=== PATIENT | female | born 1940 | race Caucasian/White ===

== ENCOUNTER 2019-07-28 16:50 | Inpatient (IN) | payer OTHER ==
[~2019-07-28] VITALS: Ht 160 cm; Wt 76.7 kg
[2019-07-28 16:50] VITALS: BP 165/91
--- NOTE | 2019-07-28 16:50 | NUR ---
Patient SANAM HELLER from [facility], transferred to bed 12. RN evaluating patient at bedside.
--- NOTE | 2019-07-28 16:57 | NUR ---
Patient transferred to bed 11 for further care.
[2019-07-28] MEDS ORDERED: NACL 0.9% 1,000 ML IV SCH (17:09)
[2019-07-28] MEDS ORDERED: cefTRIAXone 1,000 MG in DEXT 5% MINI-BAG PLUS 50 ML IV ONE (17:10)
--- NOTE | 2019-07-28 17:17 | NUR ---
BIB AMBULANCE FROM [facility] FOR ABNORMAL LABS, INCREASED CONFUSION, UTI. HX- DEMENTIA, HYPERLIPIDEMIA, PSYCHOSIS, METABOLIC ENCEPHALOPATHY Addendum: 07/28/19 at 1837 by [facility] 78 Y/F BIBA FROM [facility] FOR ABNORMAL LABS ( LAB NOT SPECIFIED), INCREASED ALTERED CONFUSION, AND UTI. VSS. PT A& O X 1. PT CONFUSED AND APHASIC. SKIN DRY AND INTACT. LUNGS CLEAR. ABDOMEN SOFT AND NONDISTENDED. HX-METABOLIC ENCEPHALOPATHY, MUSCLE WEAKNESS, HYPERLIPIDEMIA, RHABDOMYOLISIS, UTI, HTN, PSYCHOSIS, NKDA.
[2019-07-28] MEDS ORDERED: cefTRIAXone 1,000 MG VIAL ONE (17:23)
--- NOTE | 2019-07-28 17:50 | NUR ---
XR AT BEDSIDE.
--- NOTE | 2019-07-28 17:52 | NUR ---
EKG AT BEDSIDE.
[2019-07-28 18:02] LABS: BASOPHILS # (AUTO) 0.1 K/uL (0.00-0.22); BASOPHILS % (AUTO) 0.9 % (0.0-2.0); EOSINOPHILS # (AUTO) 0.3 K/uL (0-0.4); EOSINOPHILS % (AUTO) 4.4 % (0.0-4.0); HEMOGLOBIN 13.7 g/dL (12.0-16.0); LYMPHOCYTES # (AUTO) 1.6 K/uL (2.5-16.5); LYMPHOCYTES % (AUTO) 24.7 % (20.5-51.1); MEAN CORPUSCULAR HEMOGLOBIN 30 pg (27-31); MEAN CORPUSCULAR HGB CONC 33 g/dL (33-37); MEAN CORPUSCULAR VOLUME 91.2 fL (80-94); MONOCYTES # (AUTO) 0.3 K/uL (0.8-1.0); MONOCYTES % (AUTO) 5.3 % (1.7-9.3); NEUTROPHILS # (AUTO) 4.1 K/uL (1.8-7.7); NEUTROPHILS % (AUTO) 64.7 % (42.2-75.2); PLATELET COUNT (AUTO) 179 K/uL (140-450); RED CELL DISTRIBUTION WIDTH 15.5 % (11.6-13.7); WHITE BLOOD COUNT (AUTO) 6.4 K/uL (4.8-10.8)
[2019-07-28 18:20] LABS: ALBUMIN 3.8 g/dL (3.4-5.0); ASPARTATE AMINOTRANSFERASE 15 U/L (15-37); CHLORIDE 108 mmol/L (98-107); CREATININE 1.2 mg/dL (0.6-1.3); GLUCOSE 100 mg/dL (74-106); SODIUM SERUM 143 mmol/L (136-145); TOTAL BILIRUBIN 0.6 mg/dL (0.0-1.0); UREA NITROGEN, BLOOD 24 mg/dL (7-18)
--- NOTE | 2019-07-28 18:40 | NUR ---
PT LYING COMFORTABLY IN BED, BROTHER AT BEDSIDE.
[2019-07-28 18:45] LABS: APPEARANCE,URINE SL CLOUDY (CLEAR); BILIRUBIN,URINE NEGATIVE (NEGATIVE); BLOOD, URINE NEGATIVE (NEGATIVE); COLOR,URINE YELLOW (YELLOW); LEUKOCYTE ESTERASE ,URINE 1+ (NEGATIVE); NITRITE, URINE POSITIVE (NEGATIVE); UGLUCOSE NEGATIVE (NEGATIVE)
[2019-07-28 19:37] LABS: RBC,URINE 0-5 /HPF (0-5); WBC,URINE >25 (MANY) /HPF (0-5)
[2019-07-28] MEDS ORDERED: ZOLPIDEM 5 MG TAB PO PRN (20:00)
[2019-07-28] MEDS ORDERED: DOCUSATE SODIUM 100 MG GELCAP PO PRN (20:00)
[2019-07-28] MEDS ORDERED: HYDROcodone/APAP 5/325 MG 1 TAB TAB PO PRN (20:00)
[2019-07-28] MEDS ORDERED: MORPHINE SULFATE 2 MG/ML SYR IVP PRN (20:00)
[2019-07-28] MEDS ORDERED: ACETAMINOPHEN 325 MG TAB PO PRN (20:00)
[2019-07-28] MEDS ORDERED: ONDANSETRON 4 MG/2 ML VIAL IM/IVP PRN (20:00)
[2019-07-28] MEDS ORDERED: TRAZ-343 PO (20:13)
[2019-07-28] MEDS ORDERED: MEMA10TA PO (20:13)
[2019-07-28] MEDS ORDERED: MULT-153 PO (20:13)
[2019-07-28] MEDS ORDERED: SIMV40TA1 PO (20:13)
[2019-07-28] MEDS ORDERED: MAGN400S60 PO (20:13)
[2019-07-28] MEDS ORDERED: OLAN2.5T1 PO (20:13)
[2019-07-28] MEDS ORDERED: ACET-2619 PO (20:13)
[2019-07-28] MEDS ORDERED: TUBE5SOL28 ID (20:13)
[2019-07-28] MEDS ORDERED: DONE10TA10 PO (20:31)
[2019-07-28] MEDS ORDERED: FESO8TER PO (20:31)
[2019-07-28] MEDS ORDERED: ASPI-1718 PO (20:31)
[2019-07-28] MEDS ORDERED: NA P135N RC (20:31)
[2019-07-28] MEDS ORDERED: LOSA100T51 PO (20:31)
[2019-07-28 20:50] VITALS: BP 160/84
--- NOTE | 2019-07-28 20:50 | NUR ---
RECEIVED PT TOGOLESE SPEAKER AOX1 DELAYED SPEECH COOPERATIVE TO FOLLOW COMMANDS MRSA NARES SWAB TAKEN AND SENT TO LAB PROTOCOL, HL ON RT HAND GAUGE $ 20 PATENT PT IS ORIENTED TO THE FLOOR CALL LIGHT WITHIN REACH INITIAL ASSESSMENT DONE
[2019-07-28 20:55] LABS: BARBITURATE, URINE NEG. ng/ml (NEG <=200); BENZODIAZEPINE, URINE NEG. ng/mL (NEG <=200); CANNABINOID, URINE NEG. ng/mL (NEG <=50); COCAINE, URINE NEG. ng/mL (NEG <=300); OPIATE, URINE NEG. ng/mL (NEG <=2000); PHENCYCLIDINE SCREEN,URINE NEG. ng/mL (NEG <=25)
[2019-07-28 21:00] LABS: PROTHROMBIN TIME 10.5 secs (10.8-13.4)
[2019-07-28 21:12] LABS: CHOL/HDL RATIO 2.8 (1-4.5); FREE T4 (FREE THYROXINE) 0.95 ng/dL (0.76-1.46); PHOSPHORUS 3.7 mg/dL (2.5-4.9); THYROID STIMULATING HORMONE 1.49 uIU/mL (0.34-3.74)
[2019-07-28] MEDS: NACL 0.9% 1,000 ML IV SCH (21:22)
[2019-07-28] MEDS ORDERED: SIMVASTATIN 40 MG TAB ONE (22:46)
[2019-07-28] MEDS ORDERED: MEMANTINE 10 MG TAB PO SCH (23:00)
[2019-07-28] MEDS ORDERED: OLANZapine 2.5 MG TAB PO SCH (23:00)
[2019-07-28] MEDS ORDERED: hydrALAZINE 20 MG/ML VIAL IVP SCH (23:00)
--- NOTE | 2019-07-28 23:10 | NUR ---
PT TAKEN HER ORAL MEDIC NOT DISTRESS NOTED IV ON RT HAND INFUSING WELL
[2019-07-29] VITALS: BP 133/94
[2019-07-29] MEDS: LORazepam 2 MG/ML VIAL IM/IVP PRN ×2 (01:50→08:35)
--- NOTE | 2019-07-29 02:19 | NUR ---
PT VERY COMBATIVE, ANXIOUS HITTING NURSES ATIVAN GIVEN ORDER AND DR WAGNER AWARE PT CONDITION AND HOLD FOR NOW CT HEAD AND RADIOLOGIST TECH WAS NOTIFY
[2019-07-29] MEDS ORDERED: HALOPERIDOL 1 MG TAB PO SCH (03:00)
--- NOTE | 2019-07-29 04:00 | NUR ---
PT SLEEPING NOT DISTRESS NOTED AT THIS TIME IV ON RT HAND INFUSING WELL
[2019-07-29 06:06] LABS: BASOPHILS # (AUTO) 0.1 K/uL (0.00-0.22); EOSINOPHILS # (AUTO) 0.5 K/uL (0-0.4); EOSINOPHILS % (AUTO) 6.3 % (0.0-4.0); HEMATOCRIT 41.1 % (36-48); HEMOGLOBIN 13.5 g/dL (12.0-16.0); LYMPHOCYTES # (AUTO) 2.5 K/uL (2.5-16.5); LYMPHOCYTES % (AUTO) 29.1 % (20.5-51.1); MEAN CORPUSCULAR HEMOGLOBIN 30 pg (27-31); MEAN CORPUSCULAR HGB CONC 33 g/dL (33-37); MEAN CORPUSCULAR VOLUME 91.4 fL (80-94); MONOCYTES # (AUTO) 0.5 K/uL (0.8-1.0); MONOCYTES % (AUTO) 6.3 % (1.7-9.3); NEUTROPHILS # (AUTO) 4.9 K/uL (1.8-7.7); NEUTROPHILS % (AUTO) 57.3 % (42.2-75.2); PLATELET COUNT (AUTO) 167 K/uL (140-450); RED BLOOD CELL COUNT(AUTO) 4.49 MIL/uL (4.20-5.40); RED CELL DISTRIBUTION WIDTH 15.4 % (11.6-13.7); WHITE BLOOD COUNT (AUTO) 8.6 K/uL (4.8-10.8)
[2019-07-29 06:44] LABS: ANION GAP 11.7 (8-16); CARBON DIOXIDE 29.5 mmol/L (21-32); CHLORIDE 109 mmol/L (98-107); CREATININE 1.1 mg/dL (0.6-1.3); GLUCOSE 85 mg/dL (74-106); POTASSIUM 4.2 mmol/L (3.5-5.1); SODIUM SERUM 146 mmol/L (136-145); UREA NITROGEN, BLOOD 17 mg/dL (7-18)
[2019-07-29 06:48] LABS: MAGNESIUM 1.9 mg/dL (1.8-2.4)
--- NOTE | 2019-07-29 06:59 | NUR ---
PT HAS ORDER CT HEAD DR BRITO SAID THAT TEST COULD BE TAKEN LATER DURING THE DAY AND JAYLA OLEA RADILOGIST IS AWARE
--- NOTE | 2019-07-29 07:00 | NUR ---
PT VALENTINA ENDORSED TODAY SHIFT NURSE FOR CONTINUE OF CARE
--- NOTE | 2019-07-29 07:10 | NUR ---
REPORT RECEIVED FROM NIGHT NURSE ZARA. PT AWAKE. APPEARS CONFUSED, NO S/S OF ACUTE DISTRESS NOTED, CALL LIGHT AND PERSONAL ITEMS WITHIN REACH, SAFETY AND FALL PRECAUTIONS IN PLACE. WILL CONTINUE TO MONITOR.
[2019-07-29 08:00] VITALS: BP 126/77
[2019-07-29] MEDS: LOSARTAN 50 MG TAB PO SCH (08:18)
[2019-07-29] MEDS: DONEPEZIL 10 MG TAB PO SCH (08:27)
[2019-07-29] MEDS: MEMANTINE 10 MG TAB PO SCH ×2 (08:27→21:16)
[2019-07-29] MEDS ORDERED: CRUSHER, PILL MC ONE (08:39)
[2019-07-29] MEDS ORDERED: MEMANTINE 10 MG TAB PO SCH (09:00)
--- NOTE | 2019-07-29 09:10 | NUR ---
PATIENT HAS BEEN SCREENED AND CATEGORIZED LOW NUTRITION RISK. PATIENT WILL BE SEEN WITHIN 7 DAYS OF ADMISSION. 2.10.[address]
--- NOTE | 2019-07-29 09:30 | NUR ---
PT RETURNED TO UNIT FROM CT VIA BED, PT SLEEPING, NO S/S OF ACUTE DISTRESS NOTED, CALL LIGHT AND PERSONAL ITEMS PLACED WITHIN REACH, SAFETY AND FALL PRECAUTIONS IN PLACE. WILL CONTINUE TO MONITOR.
[2019-07-29] MEDS ORDERED: ALBUTEROL SULFATE/IPRATROPIU 3 ML SOL IH PRN (10:15)
--- NOTE | 2019-07-29 10:56 | NUR ---
DC PLANNING; 78 YRS OLD FEMALE PATIENT WAS ADMITTED FROM [facility] WITH A DX OF METABOLIC ENCEPHALOPATHY DUE TO UTI. PT HAS A HX OF HTN, ALZHEIMER'S DEMENTIA AND OVERACTIVE BLADDER. PT IS BED BOUND AT HER BASELINE. CT HEAD SHOWED (-) BLOOD AND URINE CULTURE PENDING. ECHO ORDERED .FALL RISK PROTOCOL INITIATED, CONTINUE HOME MEDS. DC PLAN TO GO TO [facility] WHEN STABLE. CM TO FOLLOW Addendum: 07/31/19 at 1552 by Claudia Sin CM DC PLANNING CONTINUE IV VANCO AND ZOSYN , STILL WAITING FOR THE FINAL RESULT FOR URINE CULTURE. DC PLAN TO GO BACK TO [facility] TOMORROW. CM TO FOLLOW Addendum: 08/01/19 at 0835 by Ely Girard RECEIVED DC ORDER BACK TO [facility] FOR IV ANTIBIOTIC X 1 DAY CONTACTED PATIENT'S BROTHER LARS CHE AT [phone], NO ANSWER. LEFT MESSAGE. CLINICALS AND ORDER FAXED TO [facility] AND CHINTAN MELENDEZ. CONTACTED ESTHELA OF [facility] AT [phone], NO ANSWER. LEFT MESSAGE REGARDING DC ORDER. Addendum: 08/01/19 at 0913 by Ely Girard CM PER ESTHELA KIMBALL [facility], WILL CALL ME BACK FOR AN AUTH IN 15 MINS. PER LI MELENDEZ, PATIENT WILL GO TO ROOM [address] DUMONT AND CHARGE NURSE PILAR MADE AWARE. Addendum: 08/01/19 at 1120 by Ely Girard CM 0900: PER ESTHELA KIMBALL [facility], TRANSPORT [facility] [phone] WITH [facility]. PER JEANNINE OF [facility], RN GASTROENTEROLOGY WILL BE AT 1000. PRIMARY RN AN AND CHARGE NURSE PILAR MADE AWARE.
--- NOTE | 2019-07-29 11:15 | NUR ---
DR MCMAHAN ROUNDGIORGIO ON PT, NOTIFIED OF COMPLETED HEAD CT, ADMINISTRATION OF PRN ATIVAN X1, PT UNABLE TO ASSESS PT THIS AM DUE TO PT ANXIETY, AND EXPEDITIONARY FIGHTING VEHICLE CREWMAN HALDOL HELP PER NIGHT NURSE, NO NEW ORDERS AT THIS TIME.
--- NOTE | 2019-07-29 11:34 | NUR ---
PT QUIET, PULLING AT BLANKET, STRAIGHTENED OUT LINEN AND ATTEMPTED TO REPOSITION, PT SELF ADJUSTED POSITION. APPEARS COMFORTABLE, NO S/S OF ACUTE DISTRESS NOTED, CALL LIGHT AND PERSONAL ITEMS WITHIN REACH, SAFETY AND FALL PRECAUTIONS IN PLACE. WILL CONTINUE TO MONITOR.
--- NOTE | 2019-07-29 16:30 | NUR ---
PT AWAKE CONFUSED, FAMILY AT BEDSIDE. NO S/S OF PAIN OR ACUTE DISTRESS NOTED AT THIS TIME. CALL LIGHT AND PERSONAL ITEMS REMAIN WITHIN EASY REACH CALL LIGHT AND SAFETY AND FALL PRECAUTIONS IN PLACE, WILL CONTINUE TO MONITOR.
--- NOTE | 2019-07-29 17:30 | NUR ---
PT REMAINS AWAKE CONFUSED, REMAINDER OF CAROTID ULTRASOUND COMPLETED, PER US TECH, PT PULLED OUT IV DURING PROCEDURE, IV NOTED TO BE PARTIALLY OUT OR VAIN, REMOVED, CATHETER INTACT, NEW PERIPHERAL IV STARTED TO RFA 24G, POSITIVE FLUSH AND FLASH, IVF RESUMED. CALL LIGHT AND PERSONAL ITEMS PLACED WITHIN EASY REACH CALL LIGHT AND SAFETY PRECAUTIONS IN PLACE, WILL CONTINUE TO MONITOR.
--- NOTE | 2019-07-29 18:09 | NUR ---
Called Darryl Carvajal and received immunization status. Patient refused PNA vac and received flu shot on 03/29/2019.
--- NOTE | 2019-07-29 19:15 | NUR ---
PT ASLEEP, APPEARS COMFORTABLE, NO S/S OF ACUTE DISTRESS NOTED, CALL LIGHT AND PERSONAL ITEMS IN REACH, SAFETY AND FALL PRECAUTIONS IN PLACE, REPORT ENDORSED TO BASE BRANDER CHARGE NURSE.
--- NOTE | 2019-07-29 20:30 | NUR ---
RECEIVED PATIENT IN BED. PT IS DROWSY BUT AROUSABLE. PT WITH ALOC. PT ON ROOM AIR WITH NO S/S OF DISTRESS. BED LOWERED WITH CALL LIGHT WITHIN REACH. WILL CONTINUE TO MONITOR
[2019-07-29] MEDS ORDERED: OLANZapine 2.5 MG TAB PO SCH (21:00)
[2019-07-29] MEDS: SIMVASTATIN 40 MG TAB PO SCH (21:16)
[2019-07-29] MEDS: OLANZapine 5 MG TAB PO SCH (21:16)
--- NOTE | 2019-07-29 21:16 | NUR ---
ADMINISTERED MEDS WITH APPLESAUCE. PT TOLERATED WELL
[2019-07-29] MEDS: NACL 0.9% 1,000 ML IV SCH (21:24)
--- NOTE | 2019-07-29 21:30 | NUR ---
RECEIVED PATIENT ON ROOM AIR, PULSE OX SAT 97%. NO SOB NOTED AT THIS TIME. PRN HHN NOT INDICATED. NO ACUTE RESPIRATORY DISTRESS NOTED AT THIS TIME. WILL CONTINUE TO MONITOR.
[2019-07-30] VITALS: BP 106/69
--- NOTE | 2019-07-30 01:06 | NUR ---
PT ASLEEP IN BED AT THIS TIME. NO S/S OF DISTRESS NOTED
[2019-07-30] MEDS: NACL 0.9% 1,000 ML IV SCH ×2 (06:20→23:00)
[2019-07-30 06:56] LABS: BASOPHILS # (AUTO) 0.1 K/uL (0.00-0.22); EOSINOPHILS # (AUTO) 0.4 K/uL (0-0.4); EOSINOPHILS % (AUTO) 5.2 % (0.0-4.0); HEMATOCRIT 44.9 % (36-48); HEMOGLOBIN 14.8 g/dL (12.0-16.0); LYMPHOCYTES # (AUTO) 2.3 K/uL (2.5-16.5); LYMPHOCYTES % (AUTO) 32.6 % (20.5-51.1); MEAN CORPUSCULAR HEMOGLOBIN 30 pg (27-31); MEAN CORPUSCULAR HGB CONC 33 g/dL (33-37); MEAN CORPUSCULAR VOLUME 91.4 fL (80-94); MONOCYTES # (AUTO) 0.5 K/uL (0.8-1.0); MONOCYTES % (AUTO) 7.5 % (1.7-9.3); NEUTROPHILS # (AUTO) 3.9 K/uL (1.8-7.7); NEUTROPHILS % (AUTO) 53.7 % (42.2-75.2); PLATELET COUNT (AUTO) 185 K/uL (140-450); RED BLOOD CELL COUNT(AUTO) 4.91 MIL/uL (4.20-5.40); RED CELL DISTRIBUTION WIDTH 15.1 % (11.6-13.7); WHITE BLOOD COUNT (AUTO) 7.2 K/uL (4.8-10.8)
[2019-07-30 07:00] LABS: MAGNESIUM 1.8 mg/dL (1.8-2.4); PHOSPHORUS 3.4 mg/dL (2.5-4.9)
[2019-07-30 07:10] LABS: ANION GAP 14.8 (8-16); CARBON DIOXIDE 26.4 mmol/L (21-32); CHLORIDE 106 mmol/L (98-107); GLUCOSE 87 mg/dL (74-106); POTASSIUM 4.2 mmol/L (3.5-5.1); SODIUM SERUM 143 mmol/L (136-145); UREA NITROGEN, BLOOD 13 mg/dL (7-18)
--- NOTE | 2019-07-30 07:15 | NUR ---
PATIENT ENDORSED TO AM NURSE AT BEDSIDE. PATIENT AWAKE IN BED AT THIS TIME
--- NOTE | 2019-07-30 07:21 | NUR ---
SHIFT REPORT RECEIVED FROM ESTHETICS INSTRUCTOR NURSE. PT IS IN BED AWAKE AT THIS TIME. PT IS RESTLESS AND AGITATED AT THIS TIME. CALL LIGHT IN REACH.
[2019-07-30 08:00] VITALS: BP 127/101
[2019-07-30] MEDS: LORazepam 2 MG/ML VIAL IM/IVP PRN (08:07)
[2019-07-30] MEDS: LOSARTAN 50 MG TAB PO SCH (08:51)
[2019-07-30] MEDS: MEMANTINE 10 MG TAB PO SCH ×2 (08:51→21:29)
[2019-07-30] MEDS: DONEPEZIL 10 MG TAB PO SCH (08:51)
--- NOTE | 2019-07-30 09:00 | NUR ---
PT IS NOT COOPERATIVE. PT IS REFUSING TO TAKE MEDICATIONS. PT IS RESTLESS. NOTIFIED DR DUMONT. CALL LIGHT IN REACH.
[2019-07-30] MEDS ORDERED: LORazepam 2 MG/ML VIAL IM/IVP PRN (09:05)
--- NOTE | 2019-07-30 10:00 | NUR ---
PER AIR SUPPORT OPERATIONS OPERATOR. SHE WAS NOT ABLE TO DO THE ECHO SCAN. NOTIFIED DR DUMONT.
--- NOTE | 2019-07-30 12:51 | NUR ---
PT IS IN BED RESTING AT THIS TIME. NO DISTRESS NOTED. PT GETS RESTLESS WHEN TAKING VITAL SIGNS. FAMILY AT BEDSIDE.CALL LIGHT IN REACH.
--- NOTE | 2019-07-30 13:02 | NUR ---
Late entry. Confirmed with RN that 0.9 NS IV completed at 1910. Rocephine IV completed at 1900.
--- NOTE | 2019-07-30 15:04 | NUR ---
PT IS RESTING IN BED. NO DISTRESS NOTED. SAFETY MEASURES IN CHECK. CALL LIGHT IN REACH.
[2019-07-30 16:00] VITALS: BP 166/84
[2019-07-30] MEDS ORDERED: hydrALAZINE 20 MG/ML VIAL IVP SCH (16:20)
--- NOTE | 2019-07-30 17:55 | NUR ---
UNABLE TO REASSESS BLOOD PRESSURE. PT IS AGITATED. NOTIFIED RESIDENT
--- NOTE | 2019-07-30 19:19 | NUR ---
SHIFT REPORT GIVEN TO RECORD KEEPER NURSE. PT IS IN BED IN STABLE CONDITION. CALL LIGHT IN REACH.
--- NOTE | 2019-07-30 19:20 | NUR ---
RECD. RESTING IN BED SLEEPING. RESPIRATION EVEN AND UNLABORED. WAKES UP EASILY BUT GETS AGITATED. ALERT, CONFUSED, SLURRED SPEECH. DOES NOT WANT TO BE TOUCHED. IV OF NS AT 60 ML/HR INFUSING, RIGHT FOREARM G24. SAFETY MEASURES ENFORCED. BED IN THE LOWEST POSITION, BED ALARM ON. REORIENTED TO HOSPITAL SETTING. PLAN OF CARE DISCUSSED. UNABLE TO COMPREHEND. NEEDS REINFORCEMENTS. NO APPEARANCE OF PAIN NOTED 0/10..
--- NOTE | 2019-07-30 20:00 | NUR ---
Patient's Plan of Care was discussed and reviewed with CHURN TENDER: CHRISTAL ESCALANTE LVN
[2019-07-30] MEDS: OLANZapine 5 MG TAB PO SCH (21:28)
[2019-07-30] MEDS: SIMVASTATIN 40 MG TAB PO SCH (21:29)
--- NOTE | 2019-07-30 21:29 | NUR ---
DUE PO MEDICATIONS WITH APPLE SAUCE. REFUSED AT FIRST BUT LATER TAKE MEDICATIONS. WENT BACK TO SLEEP.
[2019-07-31] VITALS: BP 156/83
[2019-07-31] MEDS: NACL 0.9% 1,000 ML IV SCH ×2 (02:13→18:31)
--- NOTE | 2019-07-31 04:30 | NUR ---
HITTING AND FIGHTING NURSES WHILE BEING CLEANED. TRIES TO SQUEEZE TIGHTLY NURSES HANDS UNTIL HER NAILS DIG DEEPER TO THEIR SKIN. REORIENTED TO HOSPITAL SETTING. UNABLE TO COMPREHEND.
--- NOTE | 2019-07-31 06:40 | NUR ---
SLEEPING COMFORTABLY IN BED.
[2019-07-31 06:45] LABS: BASOPHILS % (AUTO) 0.7 % (0.0-2.0); EOSINOPHILS # (AUTO) 0.4 K/uL (0-0.4); EOSINOPHILS % (AUTO) 6.7 % (0.0-4.0); HEMOGLOBIN 14.3 g/dL (12.0-16.0); LYMPHOCYTES # (AUTO) 2.3 K/uL (2.5-16.5); LYMPHOCYTES % (AUTO) 35.4 % (20.5-51.1); MEAN CORPUSCULAR HEMOGLOBIN 30 pg (27-31); MEAN CORPUSCULAR HGB CONC 33 g/dL (33-37); MEAN CORPUSCULAR VOLUME 91.6 fL (80-94); MONOCYTES # (AUTO) 0.6 K/uL (0.8-1.0); MONOCYTES % (AUTO) 9.2 % (1.7-9.3); NEUTROPHILS # (AUTO) 3.1 K/uL (1.8-7.7); PLATELET COUNT (AUTO) 175 K/uL (140-450); RED CELL DISTRIBUTION WIDTH 14.9 % (11.6-13.7); WHITE BLOOD COUNT (AUTO) 6.5 K/uL (4.8-10.8)
--- NOTE | 2019-07-31 06:57 | NUR ---
SAFETY MAINTAINED DURING SHIFT. CONDITION REMAIN STABLE. WILL ENDORSE TO AM SHIFT NURSE FOR CONTINUITY OF CARE.
--- NOTE | 2019-07-31 07:15 | NUR ---
REPORT RECEIVED FROM NIGHT NURSE. PT AWAKE. APPEARS CONFUSED, NO S/S OF ACUTE DISTRESS NOTED. IV INTACT AND PATENT TO RIGHT FOREARM. BED IN LOW POSITION. BED ALARM ON. SAFETY MEASURES IN PLACE. CALL LIGHT WITHIN REACH.
[2019-07-31 07:43] LABS: ANION GAP 13.3 (8-16); CARBON DIOXIDE 25.9 mmol/L (21-32); CHLORIDE 109 mmol/L (98-107); GLUCOSE 72 mg/dL (74-106); POTASSIUM 4.2 mmol/L (3.5-5.1); SODIUM SERUM 144 mmol/L (136-145); UREA NITROGEN, BLOOD 15 mg/dL (7-18)
[2019-07-31 07:45] LABS: MAGNESIUM 1.7 mg/dL (1.8-2.4); PHOSPHORUS 3.2 mg/dL (2.5-4.9)
[2019-07-31] MEDS: LORazepam 2 MG/ML VIAL IM/IVP PRN (08:12)
--- NOTE | 2019-07-31 08:22 | NUR ---
PATIENT MEDICATED FOR INCREASED AGITATION, FIGHTING STAFF DURING CARE, GETTING OUT OF BED. EDUCATED PATIENT IN REGARDS TO SAFETY PATIENT UNABLE TO COMPREHEND. BED ALARM ON. BED IN LOW POSITION. SAFETY MEASURES IN PLACE.
[2019-07-31] MEDS: LOSARTAN 50 MG TAB PO SCH (09:00)
[2019-07-31] MEDS: MEMANTINE 10 MG TAB PO SCH ×2 (09:00→21:00)
[2019-07-31] MEDS: DONEPEZIL 10 MG TAB PO SCH (09:00)
[2019-07-31] MEDS: hydrALAZINE 20 MG/ML VIAL IVP PRN ×2 (10:17→10:37)
--- NOTE | 2019-07-31 10:23 | NUR ---
NOTIFIED DR. MCMAHAN OF PATIENT STILL COMBATIVE UPON TAKING VITAL SIGNS AND OFFERING MEDICATIONS. CAME IN WITH ANOTHER STAFF TO HELP WITH PATIENT, PATIENT STILL UNCOOPERATIVE, UNABLE TO COMPREHEND. PATIENT PULLED IV OUT DR. MCMAHAN MADE AWARE.
--- NOTE | 2019-07-31 11:15 | NUR ---
PERIPHERAL IV ABLE TO REINSERT TO RIGHT FOREARM WITH 24G. Addendum: 07/31/19 at 1637 by Viry Mcdermott RN CORRECTION TO ABOVE NOTES: IV 22G.
--- NOTE | 2019-07-31 13:00 | NUR ---
PATIENT REMAINS STABLE. PATIENT IS AWAKE, ALERT, ORIENTED X1. MUMBLING TO SELF. PATIENT IS CALM AT THIS TIME. BED ALARM ON. BED IN LOW POSITION. CALL LIGHT WITHIN REACH.
--- NOTE | 2019-07-31 15:00 | NUR ---
PATIENT IS IN BED, ASLEEP. EASILY AROUSABLE BY TOUCH. SKIN WARM AND DRY TO TOUCH. RESPIRATORY EVEN AND UNLABORED. IV INTACT AND PATENT TO RIGHT FOREARM. BED ALARM ON AND BED IN LOW POSITION. SAFETY MEASURES IN PLACE.
[2019-07-31 16:00] VITALS: BP 130/92
--- NOTE | 2019-07-31 17:00 | NUR ---
PATIENT REMAINS STABLE. NO S/S OF DISTRESS NOTED. BED ALARM ON. BED IN LOW POSITION.
--- NOTE | 2019-07-31 19:05 | NUR ---
PATIENT IN STABLE CONDITION. REPORT GIVEN TO NIGHT NURSE FOR CONTINUITY OF CARE.
--- NOTE | 2019-07-31 19:28 | NUR ---
RECEIVED REPORT FORM REYES RN DAYSHIFT NURSE AT BEDSIDE FOR CONTINUITY OF CARE, PT IN STABLE CONDITION
--- NOTE | 2019-07-31 20:00 | NUR ---
PT IN BED NO /S OF PAIN OR DISTRESS NOTED. PT WAS AWOKEN BY NAME AND LIGHT SHAKING. PT BECAME COMBATIVE AND REFUSED V/S TO BE DONE . PT STILL HAS IV SITE INTACT AND RUNNING NS AT 60. ALL FALLS PROTOCOL IN PLACE AND CALL EATON IN REACH.
[2019-07-31] MEDS: OLANZapine 5 MG TAB PO SCH (21:00)
[2019-07-31] MEDS: SIMVASTATIN 40 MG TAB PO SCH (21:00)
--- NOTE | 2019-07-31 21:30 | NUR ---
PT RECEIVED HEPARIN SHOT ORDERED, HOWEVER, SHE REFUSED ALL OTHER ORAL MEDS OF NAMENDA, ZOCOR, AND ZYPREXA. ALL FALL PROTOCOL IN PLACE.
--- NOTE | 2019-08-01 | NUR ---
PT IN BED SLEEPING NO S/S OF PAIN OR DISTRESS NOTED. FLUIDS RUNNING ORDERED AND ALL FALLS PRECAUTIONS IN PLACE . PT AGAIN REFUSED ALL VITAL SIGNS.
--- NOTE | 2019-08-01 04:00 | NUR ---
PT WAS TURNED, CHANGED AND REPOSITIONED IN BED.
--- NOTE | 2019-08-01 06:50 | NUR ---
PT TRYING TO GET OUT OF BED AND STARTS HURTING ANY ONE WHO TRIES TO STOP HERE WITH KICKS HITS AND BITING. PT WAS GIVEN IVP ATIVAN. ALL FALLS PRECAUTIONS IN PLACE.
[2019-08-01] MEDS: LORazepam 2 MG/ML VIAL IM/IVP PRN (07:07)
--- NOTE | 2019-08-01 07:10 | NUR ---
RECEIVED REPORT FROM NIGHT NURSE, PT IS AGITATED, NIGHT NURSE ALREADY MEDICATE PT FOR AGITATION, UPDATE WHITE BOARD, RFA 22G RUNNING NS AT 60ML, SAFETY MEASURES IN PLACE, PT IS STABLE, WILL CONTINUE TO MONITOR
[2019-08-01] MEDS ORDERED: CEFT1SOL1 IV (08:12)
[2019-08-01] MEDS ORDERED: OLAN2.5T1 PO (08:12)
[2019-08-01] MEDS: NACL 0.9% 1,000 ML IV SCH (08:20)
--- NOTE | 2019-08-01 08:51 | NUR ---
RECEIVED PT ON ROOM AIR WITH SP02 OF 96% AND A CLEAR BREATH SOUNDS ON UPPER LOBES. NO RESPIRATORY DISTRESS NOTED AT THIS TIME. WILL CONTINUE TO MONITOR PT.
[2019-08-01] MEDS ORDERED: HALOPERIDOL IM 5 MG/ML VIAL IM SCH (09:00)
[2019-08-01] MEDS: LOSARTAN 50 MG TAB PO SCH (09:00)
[2019-08-01] MEDS: DONEPEZIL 10 MG TAB PO SCH (09:00)
[2019-08-01] MEDS: MEMANTINE 10 MG TAB PO SCH (09:00)
--- NOTE | 2019-08-01 09:57 | NUR ---
GAVE PT HALDOL ORDERED FOR AGITATION, PT IS OTHERWISE STABLE, EDUCATION GIVEN, PT CONFUSED.
--- NOTE | 2019-08-01 10:10 | NUR ---
PT DISCHARGED TO [facility], TRANSPORT VIA [facility], IV SITE INTACT AND PATENT, PT IS STABLE, CALLED AND GAVE REPORT TO SHADIA, NOTIFIED LARS AND IS AWARE OF HIS SISTER TRANSPORTATION, ALSO LEFT A MESSAGE FOR THE BROTHER WITH THE TIME OF POOLROOM/POOLHALL MANAGER
== END 2019-08-01 10:10 | DRG 689 ==
LOC: MED 16:50 → MTU 20:06
PROVIDERS: ADMIT General Practice; ATTEND General Practice
DX: N39.0 Urinary tract infection, site not specified (principal); G93.41 Metabolic encephalopathy; I16.0 Hypertensive urgency; E78.5 Hyperlipidemia, unspecified; K21.9 Gastro-esophageal reflux disease without esophagitis; I10 Essential (primary) hypertension; G30.9 Alzheimer's disease, unspecified; F02.80 Dementia in other diseases classified elsewhere, unspecified severity, without behavioral disturbance, psychotic disturbance, mood disturbance, and anxiety; N32.81 Overactive bladder; E83.42 Hypomagnesemia; Z86.73 Personal history of transient ischemic attack (TIA), and cerebral infarction without residual deficits; Z79.82 Long term (current) use of aspirin; Z79.899 Other long term (current) drug therapy
CPT/HCPCS: 36415; 70450; 71045; 80048; 80053; 80305; 81001; 82150; 83036; 83605; 83690; 83735; 83880; 84100; 84439; 84443; 84484; 85025; 85610; 85730; 87040; 87081; 87086; 87186; 93005; 93880; 96365; 99285; J0360; J0696; J1630; J1644; J2060; J7030; Q0092